=== PATIENT | male | born 1950 | race Caucasian/White ===

== ENCOUNTER 2022-06-27 09:42 | Day surgery (SDC) | payer MEDICARE ==
[2022-06-26 09:07] VITALS: BMI 31.1
[~2022-06-27 09:42] MED LIST: LACTATED RINGERS 1,000 ML IV SCH
[2022-06-27 10:06] VITALS: TEMP 97.2
[2022-06-27] MEDS ORDERED: PROPOFOL 10 MG/ML 20 ML VIAL IV ONE (10:41)
--- NOTE | 2022-06-27 10:45 | P.GSHP ---
History of Present Illness H&P Date: 06/27/22 Chief Complaint: Colon cancer screening, history of polyps 72-year-old male here for colonoscopy. Last colonoscopy 8 years ago. Patient with history of previous colon polyps. No family history of colon cancer. No bowel complaints. Past Medical History Past Medical History: Hyperlipidemia, Hypertension, Sleep Apnea/CPAP/BIPAP Additional Past Medical History / Comment(s): CPAP use. History of Any Multi-Drug Resistant Organisms: None Reported Additional Past Surgical History / Comment(s): Varicose vein removed. 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 Colonoscopies. Past Anesthesia/Blood Transfusion Reactions: No Reported Reaction Past Psychological History: No Psychological Hx Reported Smoking Status: Former smoker Past Alcohol Use History: Occasional Additional Past Alcohol Use History / Comment(s): Quit smoking 40 yrs ago. Past Drug Use History: None Reported - Past Family History Mother Family Medical History: No Reported History Medications and Allergies Home Medications Medication Instructions Recorded Confirmed Type Atorvastatin Calcium 10 mg PO DAILY 06/26/22 06/27/22 History Losartan/Hydrochlorothiazide 1 tab PO DAILY 06/26/22 06/27/22 History [Losartan-Hctz 50-12.5 mg Tab] hydroCHLOROthiazide 12.5 mg PO DAILY 06/26/22 06/27/22 History Allergies Allergy/AdvReac Type Severity Reaction Status Date / Time No Known Allergies Allergy Verified 06/27/22 10:07 Surgical - Exam Vital Signs Temp Pulse Resp BP Pulse Ox 97.2 F L 55 L 16 164/82 98 06/27/22 10:00 06/27/22 10:00 06/27/22 10:00 06/27/22 10:00 06/27/22 10:00 Physical exam: General: Well-developed, well-nourished HEENT: Normocephalic, sclerae nonicteric Abdomen: Nontender, nondistended Extremities: No edema Neuro: Alert and oriented Assessment and Plan (1) Colon cancer screening Narrative/Plan: Will proceed with colonoscopy at this time. Current Visit: Yes Status: Acute Code(s): Z12.11 - ENCOUNTER FOR SCREENING FOR MALIGNANT NEOPLASM OF COLON SNOMED Code(s): 831632577
--- NOTE | 2022-06-27 11:04 | P.PCN ---
Date of Procedure: 06/27/22 Procedure(s) Performed: PREOPERATIVE DIAGNOSIS: Colon cancer screening, history of polyps POSTOPERATIVE DIAGNOSIS: Extensive diverticulosis PROCEDURE: Colonoscopy ANESTHESIA: MAC SURGEON: Jairon Conroy M.D. SPECIMENS: None ENDOSCOPIC PROCEDURE: The patient was placed on the endoscopy table in the left decubitus position. The Olympus colonoscope was inserted into the anus and passed under direct visualization to the base of the cecum. The appendiceal orifice was visualized. From that point the scope was slowly withdrawn inspecting all surfaces carefully. There were no neoplastic inflammatory or polypoid lesions throughout the cecum, ascending, transverse, descending, sigmoid and rectum. There was extensive diverticulosis noted throughout the colon. Digital rectal examination was normal. The patient was taken to the recovery room in stable condition per anesthesia guidelines. RECOMMENDATIONS: Resume diet. Repeat colonoscopy in 5 years.
[2022-06-27 13:40] VITALS: BP 147/76; PULSE 51; RESP 16
--- NOTE | 2022-06-27 21:57 | P.CRDCN ---
History of Present Illness History of present illness: History of present illness: Patient is a pleasant 72 year old male with history of hypertension, colon polyps, sleep apnea and bradycardia. Patient presented for elective colonoscopy which was uneventful however patient was noted to be bradycardic during and after the case. He denies any actual chest pain, SOB or lightheadedness currently. He states he feels back to his normal self. He has a smart watch and believes his HR is normal in the 70 range however a few times has noted his HR in the 50's. He has been lightheaded at times at home however not clearly associated with anything he is doing. Mild dyspnea on exertion which he attributes to aging. EKG shows sinus nikky at 50 1st degree AV block. REVIEW OF SYSTEMS: No fever or chills. No cough or expectoration. No diaphoresis. Patient denies headache, dizziness, blurred vision, double vision. Patient denies any stomach discomfort. Reports nausea, vomiting. No hematochezia. No hematemesis. Denies any black stools or blood in his stools. Denies dysuria or hematuria. No muscle weakness or numbness. No chest pain or p ressure. PHYSICAL EXAMINATION: No apparent distress at the time of my examination. HEENT: Head is atraumatic, normocephalic. Pupils are equal, round. Sclerae anicteric. Conjunctivae are clear. Mucous membranes of the mouth are moist. Neck is supple. There is no jugular venous distention. No carotid bruit is heard. CHEST EXAMINATION: Lungs are clear to auscultation. No chest wall tenderness is noted on palpation or with deep breathing. HEART EXAMINATION: Heart regular rate and rhythm. S1, S2 heard. No murmurs, gallops or rub. ABDOMEN: Soft, nontender. Bowel sounds are heard. EXTREMITIES: 2+ peripheral pulses with no evidence of peripheral edema and no calf tenderness noted. NEUROLOGIC EXAMINATION: Patient is awake, alert and oriented x3. IMPRESSION AND PLAN: Sinus bradycardia, does not appear symptomatic 1st degree AV block Hypertension Sleep apnea Lightheadedness PLAN: TSH was obtained and noted to be normal. He is not on any rate controlling medications and recommend continuing with current regimen. He is having some occasional lightheadedness and we will arrange for monitor in the office and further workup of his lightheadedness. Ok for discharge from cardiology [facility]. Past Medical History Past Medical History: Hyperlipidemia, Hypertension, Sleep Apnea/CPAP/BIPAP Additional Past Medical History / Comment(s): CPAP use. History of Any Multi-Drug Resistant Organisms: None Reported Additional Past Surgical History / Comment(s): Varicose vein removed. 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 Colonoscopies. Past Anesthesia/Blood Transfusion Reactions: No Reported Reaction Past Psychological History: No Psychological Hx Reported Smoking Status: Former smoker Past Alcohol Use History: Occasional Additional Past Alcohol Use History / Comment(s): Quit smoking 40 yrs ago. Past Drug Use History: None Reported - Past Family History Mother Family Medical History: No Reported History Medications and Allergies Home Medications Medication Instructions Recorded Confirmed Type Atorvastatin Calcium 10 mg PO DAILY 06/26/22 06/27/22 History Losartan/Hydrochlorothiazide 1 tab PO DAILY 06/26/22 06/27/22 History [Losartan-Hctz 50-12.5 mg Tab] hydroCHLOROthiazide 12.5 mg PO DAILY 06/26/22 06/27/22 History Allergies Allergy/AdvReac Type Severity Reaction Status Date / Time No Known Allergies Allergy Verified 06/27/22 10:07 Physical Exam Vitals: Vital Signs Temp Pulse Resp BP Pulse Ox 06/27/22 13:30 51 L 16 147/76 95 06/27/22 12:25 49 L 18 152/82 95 06/27/22 12:00 48 L 18 155/89 95 06/27/22 11:45 48 L 18 152/83 95 06/27/22 11:30 47 L 06/27/22 11:25 55 L 16 153/83 96 06/27/22 11:06 52 L 16 140/79 95 06/27/22 10:00 97.2 F L 55 L 16 164/82 98 Intake and Output 06/27/22 06/27/22 06/27/22 06:59 14:59 22:59 Intake Total 250 Balance 250 Intake: IV 250 Other: Weight 106.1 kg Results Intake and Output 06/27/22 06/27/22 06/27/22 06:59 14:59 22:59 Intake Total 250 Balance 250 Intake: IV 250 Other: Weight 106.1 kg Patient Weight 06/28/22 06:59 Weight 106.1 kg
== END 2022-06-27 14:34 | disposition home or self-care (01) ==
LOC: ORWHC2ENDO 09:42
PROVIDERS: ATTEND Surgery
DX: Z12.11 Encounter for screening for malignant neoplasm of colon (principal); K57.30 Diverticulosis of large intestine without perforation or abscess without bleeding; I10 Essential (primary) hypertension; E78.5 Hyperlipidemia, unspecified; F10.90 Alcohol use, unspecified, uncomplicated; G47.33 Obstructive sleep apnea (adult) (pediatric); Z87.891 Personal history of nicotine dependence; Z79.899 Other long term (current) drug therapy; Z86.010 Personal history of colon polyps; Z99.89 Dependence on other enabling machines and devices; Z98.890 Other specified postprocedural states; Z90.49 Acquired absence of other specified parts of digestive tract
CPT/HCPCS: 84443; J2704; G0105; 45378

== ENCOUNTER 2022-08-21 04:22 | Emergency (ER) | payer MEDICARE ==
[2022-08-21 04:30] VITALS: TEMP 98
--- NOTE | 2022-08-21 05:29 | ED ---
General Adult HPI - General Chief complaint: GI Bleed Stated complaint: Rectal Bleeding Time Seen by Provider: 08/21/22 04:57 Source: patient Mode of arrival: ambulatory Limitations: no limitations - History of Present Illness Initial comments: Dictation was produced using [employer] dictation software. please excuse any grammatical, word or spelling errors. Chief Complaint: 72-year-old male with history of diverticulosis presents with GI bleed History of Present Illness: That is a 72-year-old male presents emergency department for several hours of bright red blood per rectum. Patient's symptoms have been ongoing since last night. 2 months ago patient had a colonoscopy that showed diverticulosis. No other abnormalities were noted. Patient does not take any anticoagulation medication he has been having crampy abdominal pain. He is got to the bathroom approximately 10 times with passage of bright red blood. Patient has any fevers. Denies any lightheadedness. The ROS documented in this emergency department record has been reviewed and confirmed by me. Those systems with pertinent positive or negative responses have been documented in the HPI. All other systems are other negative and/or noncontributory. - Related Data Home Medications Medication Instructions Recorded Confirmed Atorvastatin Calcium 10 mg PO DAILY 06/26/22 06/27/22 Losartan/Hydrochlorothiazide 1 tab PO DAILY 06/26/22 06/27/22 [Losartan-Hctz 50-12.5 mg Tab] hydroCHLOROthiazide 12.5 mg PO DAILY 06/26/22 06/27/22 Allergies Allergy/AdvReac Type Severity Reaction Status Date / Time No Known Allergies Allergy Verified 08/21/22 04:25 Review of Systems ROS Statement: Those systems with pertinent positive or pertinent negative responses have been documented in the HPI. ROS Other: All systems not noted in ROS Statement are negative. Past Medical History Past Medical History: GI Bleed, Hyperlipidemia, Hypertension, Sleep Apnea/CPAP/BIPAP Additional Past Medical History / Comment(s): CPAP use. History of Any Multi-Drug Resistant Organisms: None Reported Additional Past Surgical History / Comment(s): Varicose vein removed. 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 Colonoscopies. Past Anesthesia/Blood Transfusion Reactions: No Reported Reaction Past Psychological History: No Psychological Hx Reported Smoking Status: Former smoker Past Alcohol Use History: Occasional Past Drug Use History: None Reported - Past Family History Mother Family Medical History: No Reported History General Exam - General Exam Comments Initial Comments: PHYSICAL EXAM: General Impression: Alert and oriented x3, not in acute distress HEENT: Normocephalic atraumatic, extra-ocular movements intact, pupils equal and reactive to light bilaterally, mucous membranes moist. Cardiovascular: Heart regular rate and rhythm Chest: Able to complete full sentences, no retractions, no tachypnea Abdomen: abdomen soft, non-tender, non-distended, no organomegaly Musculoskeletal: Pulses present and equal in all extremities, no peripheral edema Motor: no focal deficits noted Neurological: CN II-XII grossly intact, no focal motor or sensory deficits noted Skin: Intact with no visualized rashes Psych: Normal affect and mood Anus: No blood at the site of the anus, no active bleeding, digital rectal exam deferred Limitations: no limitations Course Vital Signs 08/21/22 08/21/22 04:25 06:29 Temperature 98.0 F Pulse Rate 61 70 Respiratory 16 18 Rate Blood Pressure 153/84 139/80 O2 Sat by Pulse 98 Oximetry Medical Decision Making - Medical Decision Making Was pt. sent in by a medical professional or institution (, PA, SKIN CARE TECHNICIAN, urgent care, hospital, or residential...) When possible be specific @ -No Did you speak to anyone other than the patient for history (EMS, parent, family, police, friend...)? What history was obtained from this source @ -No Did you review nursing and triage notes (agree or disagree)? Why? @ -I reviewed and agree with nursing and triage notes Were old charts reviewed (outside hosp., previous admission, EMS record, old EKG, old radiological studies, urgent care reports/EKG's, residential records)? Report findings @ -Colonoscopy from June of this year was reviewed showing history of diverticulosis Differential Diagnosis (chest pain, altered mental status, abdominal pain women, abdominal pain men, vaginal bleeding, musculoskeletal, weakness, fever, dyspnea, syncope, headache, dizziness, GI bleed, back pain, seizure, CVA, palpatations, mental health)? @ -Differential GI Bleed: Esophageal varices, aortoenteric fistula, Jodie-Koenig, gastritis, peptic ulcer disease, diverticulosis, inflammatory bowel disease, hemorrhoids, fissure, colitis, malignancy, Meckels diverticulum, this is not meant to be an all- inclusive list. EKG interpreted by me (3pts min.). @ -None done X-rays interpreted by me (1pt min.). @ -None done CT interpreted by me (1pt min.). @ -None done U/S interpreted by me (1pt. min.). @ -None done What testing was considered but not performed or refused? (CT, X-rays, U/S, labs)? Why? @ -None What meds were considered but not given or refused? Why? @ -None Did you discuss the management of the patient with other professionals (professionals i.e. DrPatricia, PA, SKIN CARE TECHNICIAN, lab, RT, psych nurse, social work msw, applications consultant, teacher, chief strategy officer, pillowcase maker)? Give summary @ -No Was smoking cessation discussed for >3mins.? @ -No Was critical care preformed (if so, how long)? @ -No Were there social determinants of health that impacted care today? How? (Homelessness, low income, unemployed, alcoholism, drug addiction, transportation, low edu. Level, literacy, decrease access to med. care, prison, rehab)? @ -No Was there de-escalation of care discussed even if they declined (Discuss DNR or withdrawal of care, Hospice)? DNR status @ -No What co-morbidities impacted this encounter? (DM, HTN, Smoking, COPD, CAD, Canc er, CVA, ARF, Chemo, Hep., AIDS, mental health diagnosis, sleep apnea, morbid obesity)? @ -None Was patient admitted / discharged? Hospital course, mention meds given and route, prescriptions, significant lab abnormalities, going to OR and other pertinent info. @ -72 Year-old male with a history of diverticulosis presents with bright blood per rectum. Patient is well-appearing at bedside. Vital signs stable. Patient does not take any anticoagulant medications. Laboratory evaluation obtained. Hemoglobin 12.6. Coag panel is unremarkable. Patient monitored in the emergency department for approximately 2 hours and 30 minutes. States he did have a bowel movement but was not very bloody. States his abdominal symptoms have resolved. Patient's clinical presentation likely secondary to bleeding diverticulosis. Patient on high risk not on any anticoagulation medications and having improvement of his bright blood per rectum. Patient agreeable to discharge. He is given strict return precautions. Patient told to follow up with primary care doctors. at the bedside is agreeable to disposition. Undiagnosed new problem with uncertain prognosis? @ -No Drug Therapy requiring intensive monitoring for toxicity (Heparin, Nitro, Insulin, Cardizem)? @ -No Were any procedures done? @ -No Diagnosis/symptom? Acute, or Chronic, or Acute on Chronic? Uncomplicated (without systemic symptoms) or Complicated (systemic symptoms)? @ -1. Bright red blood per rectum Side effects of treatment? @ -No Exacerbation, Progression, or Severe Exacerbation? @ -No Poses a threat to life or bodily function? How? (Chest pain, [place], [place], pneumonia, PE, COPD, DKA, ARF, appy, cholecystitis, CVA, Diverticulitis, Homicidal, Suicidal, threat to staff... and all critical care pts) @ -yes - Lab Data Result diagrams: 08/21/22 05:30 Lab Results 08/21/22 08/21/22 Range/Units 05:30 05:30 WBC 12.8 H (3.8-10.6) k/uL RBC 3.76 L (4.30-5.90) m/uL Hgb 12.6 L (13.0-17.5) gm/dL Hct 34.4 L (39.0-53.0) % MCV 91.5 (80.0-100.0) fL MCH 33.4 (25.0-35.0) pg MCHC 36.5 (31.0-37.0) g/dL RDW 13.6 (11.5-15.5) % Plt Count 371 (150-450) k/uL MPV 8.6 Neutrophils % 80 % Lymphocytes % 11 % Monocytes % 7 % Eosinophils % 1 % Basophils % 1 % Neutrophils # 10.2 H (1.3-7.7) k/uL Lymphocytes # 1.4 (1.0-4.8) k/uL Monocytes # 0.9 (0-1.0) k/uL Eosinophils # 0.1 (0-0.7) k/uL Basophils # 0.1 (0-0.2) k/uL Hyperchromasia Slight PT 10.9 (9.0-12.0) sec INR 1.0 (<1.2) APTT 22.6 (22.0-30.0) sec Disposition Clinical Impression: BRBPR (bright red blood per rectum) Disposition: HOME SELF-CARE Condition: Fair Instructions (If sedation given, give patient instructions): Gastrointestinal Bleeding (ED) Is patient prescribed a controlled substance at d/c from ED?: No Referrals: Akanksha Umanzor MD [Primary Care Provider] - 1-2 days Time of Disposition: 06:50
[2022-08-21 06:16] LABS: Basophils # (A) 0.1 k/uL (0-0.2); Basophils % (A) 1 %; Eosinophils # (A) 0.1 k/uL (0-0.7); Eosinophils % (A) 1 %; HCT 34.4 % (39.0-53.0); HGB 12.6 gm/dL (13.0-17.5); Hyperchromasia Slight; Lymphocytes # (A) 1.4 k/uL (1.0-4.8); Lymphocytes % (A) 11 %; MCH 33.4 pg (25.0-35.0); MCHC 36.5 g/dL (31.0-37.0); MCV 91.5 fL (80.0-100.0); Mean Platelet Volume 8.6; Monocytes # (A) 0.9 k/uL (0-1.0); Monocytes % (A) 7 %; Neutrophils # (A) 10.2 k/uL (1.3-7.7); Neutrophils % (A) 80 %; Platelet Count 371 k/uL (150-450); RBC 3.76 m/uL (4.30-5.90); RDW 13.6 % (11.5-15.5); WBC 12.8 k/uL (3.8-10.6)
[2022-08-21 06:26] LABS: Partial Thromboplastin Time 22.6 sec (22.0-30.0); Prothrombin Time 10.9 sec (9.0-12.0)
[2022-08-21 06:31] VITALS: BP 139/80; PULSE 70; RESP 18
[2022-08-21 06:58] LABS: African American GFR (CKD) >90 (>60 ml/min/1.73 sqM); Anion Gap 6 mmol/L; Blood Urea Nitrogen 16 mg/dL (9-20); Calcium 9.4 mg/dL (8.4-10.2); Carbon Dioxide 30 mmol/L (22-30); Chloride 103 mmol/L (98-107); Glucose 137 mg/dL (74-99); Non-African American GFR(CKD) 89 (>60 ml/min/1.73 sqM); Potassium 3.9 mmol/L (3.5-5.1); Sodium 139 mmol/L (137-145)
== END 2022-08-21 07:22 | disposition home or self-care (01) ==
LOC: EC 04:22
DX: K62.5 Hemorrhage of anus and rectum (principal); I10 Essential (primary) hypertension; G47.30 Sleep apnea, unspecified; E78.5 Hyperlipidemia, unspecified; Z87.891 Personal history of nicotine dependence; Z79.899 Other long term (current) drug therapy
CPT/HCPCS: 36415; 80048; 85025; 85610; 85730; 86850; 86900; 86901; 99284

== ENCOUNTER → 2023-04-19 | Outpatient (CLI) | payer MEDICARE ==
--- NOTE | 2023-04-19 13:24 | XR ---
EXAMINATION TYPE: XR chest 2V DATE OF EXAM: 04/19/2023 1:00 PM CLINICAL INDICATION:Male, 73 years old with history of J40 BRONCHITIS, NOT SPECIFIED ACUTE OR ATTENUATOR JAGDISH; [facility] COMPARISON: Chest radiographs from 04/19/2023. TECHNIQUE: XR chest 2V Frontal and lateral views of the chest. FINDINGS: Lungs/Pleura: There is flattening of the diaphragm with increased lucency of the lungs. No evidence o f pneumothorax, pleural effusion or focal consolidation. Pulmonary vascularity: Unremarkable. Heart/mediastinum: Cardiomediastinal silhouette is unremarkable. Musculoskeletal: No acute osseous pathology. Other findings: Surgical clips in upper abdomen. IMPRESSION: No acute cardiopulmonary disease/process.
== END | disposition home or self-care (01) ==
LOC: RADXRMAIN 12:49
PROVIDERS: ATTEND Family Medicine
DX: J40 Bronchitis, not specified as acute or chronic (principal)
CPT/HCPCS: 71046